=== PATIENT | female | born 1950 | race Caucasian/White ===

== ENCOUNTER 2017-12-26 06:01 | Inpatient (IN) ==
[2017-12-26] MEDS ORDERED: Dexamethasone Inj 20 MG/5 ML Vial IV.PUSH ONE (06:41)
[2017-12-26] MEDS ORDERED: Chlorhexidine 4% Topical 120 APPLIC/120 ML Bottle TOPICAL SCH (06:45)
[2017-12-26] MEDS ORDERED: Metoprolol Tartrate 25 MG Tablet PO ONE (06:48)
[2017-12-26] MEDS ORDERED: Chlorhexidine Gluconate 2% 1 Pack (2 Cloths) TOPICAL ONE (06:48)
[2017-12-26] MEDS ORDERED: Sodium Chlor 0.9% Inj 500 ML IV.SIG SCH (07:00)
[2017-12-26] MEDS ORDERED: Vancomycin Inj 1,000 MG in Sodium Chlor 0.9% Inj 250 ML IV.SIG SCH (07:00)
[2017-12-26] MEDS ORDERED: ceFAZolin 2 GM Premix Inj 2 GM/50 ML PIGGYBACK IV.SIG SCH (07:00)
[2017-12-26] MEDS ORDERED: Bupivacaine Liposomal PF 1.3% Inj 20 ML Vial ONE (07:08)
[2017-12-26] MEDS ORDERED: Bupivacaine 0.5% Inj 50 ML MDV Vial ONE (07:09)
[2017-12-26] MEDS ORDERED: Sodium Chlor 0.9% Inj 73.07 ML, Ropivacaine 0.5% PF Inj 24.63 ML, Ketorolac Inj 30 MG, ... P-ARTICULR SCH ×5 (07:30)
[2017-12-26] MEDS ORDERED: Lidocaine PF 1% Inj 5 ML Syringe OTHER ONE (08:15)
[2017-12-26] MEDS ORDERED: TRANEXAMIC ACID IV.SIG SCH (08:30)
[2017-12-26] MEDS ORDERED: SODIUM CHLOR 0.9% IV.SIG SCH (08:30)
[2017-12-26] MEDS ORDERED: Bisacodyl 10 MG Supp RECTAL PRN (10:20)
[2017-12-26] MEDS ORDERED: Post-op Orders (for Pharmacy) OTHER STA (10:20)
[2017-12-26] MEDS ORDERED: Morphine Inj 4 MG/ML Vial IV.PUSH PRN (10:20)
[2017-12-26] MEDS ORDERED: Aluminum/Magnesium/Simethacone Susp 30 ML UDC PO PRN (10:20)
--- NOTE | 2017-12-26 10:24 | P.OP ---
- Preoperative Diagnosis (1) Osteoarthritis of right knee - Postoperative Diagnosis (1) Osteoarthritis of right knee Date of procedure: 12/26/17 Procedure: Right total knee arthroplasty Anesthesia: [facility] Surgeon: Edmundo Mark MD Lens Maker: LILIANA Cramer The surgical procedure was assisted by my Advanced Registered Nurse Practitioner. My ZOOLOGY PROFESSOR presence was necessary throughout this case for the manipulation and positioning of the surgical extremity. My ZOOLOGY PROFESSOR was assisting me throughout the duration of this procedure. The skill set of an Advance Registered Nurse Practitioner was medically necessary to complete this procedure. During the surgical case, the surgical instrument mechanic was working at the back table and the Advance Registered Nurse Practitioner was directly assisting me. Operation and Findings: IMPLANTS: DePuy Attune: Patella: size 32. Femur, posterior stabilized size 6. Tibia, rotating platform size 5. Tibial insert, rotating platform, posterior stabilized size 5 mm thickness. ESTIMATED BLOOD LOSS: 125 cc TOURNIQUET TIME: 44 minutes at 250 mmHg pressure. JUSTIFICATION FOR PROCEDURE: The patient has end-stage osteoarthritis to the knee. There is an attached conservative measures pathway form in the chart that describes the nonoperative measures that were undertaken prior to consideration of surgical management. The patient understood the risks and benefits of surgical management. See my office notes for further details PROCEDURE: The patient was brought back to the operative theatre. Adequate anesthesia was obtained. The patient received intravenous vancomycin and Ancef. The lower extremity was prepped and draped in the usual sterile fashion. Note that we used DuraPrep and iodine scrub rather than Hibiclens. The leg was exsanguinated , the tourniquet was raised. A standard anterior incision was performed followed by medial parapatellar arthrotomy was performed. End-stage arthritis was identified. Osteotomy of the patella was performed. We drilled holes for the patella. We trialed the patella component. We placed an intramedullary guide into the distal femur. We ultimately resected 13 mm off of the distal femur in 5 degrees of valgus. The remnants of the ACL and PCL were resected. Osteotomy of the proximal tibia was performed, resecting 5 mm off of the medial side. This was done with 3 degrees of posterior slope using an extramedullary guide. The distal end of the guide was placed in the mid aspect of the ankle. The femur was sized, and four chamfer cuts were completed in 3 of external rotation. We then cut the central box in the distal femur to replace the PCL. We resected the remnants of the menisci and removed osteophytes off of the femur and tibia. We then trialed the knee. We punched the tibia for the keel, and then used standard technique to cement in components. Excess cement was removed. We trialed the knee again and the final polyethylene thickness was chosen to provide extension to 0 degrees, and flexion of 140 degrees to gravity. The ligaments were appropriately balanced. Lateral release was necessary to obtain excellent patellofemoral tracking. The tourniquet was released and adequate hemostasis was obtained. An intra- articular injection of a ropivacaine cocktail was injected. The posterior knee was inspected for excess cement, which was removed. The final polyethylene was put into position after thorough irrigation. We then closed deep fascia with a #2 Stratafix followed by skin with 2-0 Vicryl followed by Dermabond dressing. Postop plan is to weight-bear as tolerated. DVT prophylaxis will be performed with SCDs, SHELLEY dockery, early mobilization, and Lovenox followed by aspirin.
[2017-12-26] MEDS ORDERED: fentaNYL Citrate Inj 100 MCG/2 ML Ampul ONE (11:02)
[2017-12-26] MEDS ORDERED: *Meperidine Inj 25 MG/ML Vial PERIprocedural Use ONLY ONE (11:09)
[2017-12-26] MEDS ORDERED: *morphine SULFATE 4 MG/ML PERIprocedure ONLY ONE ×2 (11:24→11:49)
[2017-12-26] MEDS ORDERED: SODIUM CHLOR 0.9% IV.SIG ONE (11:30)
[2017-12-26] MEDS ORDERED: TRANEXAMIC ACID IV.SIG ONE (11:30)
[2017-12-26] MEDS: Sod Chloride 0.9% Inj 1,000 ML IV.CONT SCH (11:34)
--- NOTE | 2017-12-26 11:50 | XR ---
EXAM DATE: 12/26/2017 10:20 AM EDT AGE/SEX: 67 years / Female INDICATIONS: Post-op right knee. CLINICAL DATA: This is the patient's initial encounter. Patient reports that signs and symptoms have been present for 1 day and indicates a pain score of Nonresponsive. MEDICAL/SURGICAL HISTORY: None. None. COMPARISON: No prior exams available for comparison. FINDINGS: Two views of the knee reveal a total knee prosthesis in good position. No fracture or dislocation is observed. Soft tissues are unremarkable. No joint effusion is seen. CONCLUSION: Prosthesis in good position. Electronically signed by: Corona Sanchez MD 12/26/2017 11:49 AM EDT
--- NOTE | 2017-12-26 14:02 | P.DCO ---
- Physical Therapy Physical Therapy: Gait training, Transfer training, bed to chair Knee: Total knee Right Lower Extremity Weight Bearing: Weight bearing as tolerated Right Lower Extremity Range of Motion: Active ROM - Nursing Nursing: Lovenox teaching Dressing changes: Do not change dressing Additional instructions: First dressing change in the office. Take Lovenox injections 1 a day for 10 days followed by a full strength aspirin daily for 30 days. - Certification Need for Home Health services: I have seen patient Roro Jameson on 12/26/17. My clinical findings support the need for the requested home health care services because: Need for Home Health Services: Limited ability to care for self, High risk of falls Homebound Certification: I certify that my clinical findings support that this patient is homebound because: Homebound Certification: Post-op weakness, Unsteady gait/balance
[2017-12-26] MEDS ORDERED: Zolpidem Tartrate 5 MG Tablet PO PRN (21:00)
[2017-12-26] MEDS: Senna/Docusate Sodium 8.6/50 MG Tablet PO SCH (21:08)
[2017-12-26] MEDS: Multivitamin/Minerals Therapeutic Tablet PO SCH (21:08)
[2017-12-27] MEDS: Sod Chloride 0.9% Inj 1,000 ML IV.CONT SCH (02:53)
[2017-12-27 05:07] LABS: Hematocrit 38.5 % (35.0-46.0); Hemoglobin 12.7 gm/dL (11.6-15.3)
--- NOTE | 2017-12-27 06:57 | P.PNOP ---
Subjective Interval history: The patient is resting comfortably in bed in no acute distress. The patient reports minimal pain to the right lower leg. The patient has been ambulatory with minimal difficulty. Physical Exam Vital signs: Vital Signs 12/26/17 07:15 12/26/17 07:18 12/26/17 10:55 Temperature 97.7 F 97.9 F Pulse Rate 65 67 83 Respiratory Rate 16 20 Blood Pressure 159/77 H 165/78 H Pulse Oximetry 97 100 97 12/26/17 11:15 12/26/17 11:30 12/26/17 12:05 Temperature 98.0 F Pulse Rate 82 83 83 Respiratory Rate 16 18 20 Blood Pressure 162/77 H 168/80 H 162/79 H Pulse Oximetry 94 L 97 95 12/26/17 12:58 12/26/17 16:00 12/26/17 16:42 Temperature 97.5 F L 97.5 F L Pulse Rate 73 72 Respiratory Rate 18 18 18 Blood Pressure 172/79 H 129/64 Pulse Oximetry 97 93 L 12/26/17 19:48 12/27/17 00:21 Temperature 97.4 F L 97.7 F Pulse Rate 86 66 Respiratory Rate 18 18 Blood Pressure 127/51 L 121/57 L Pulse Oximetry 95 96 Intake & Output 12/26/17 12/26/17 12/27/17 06:59 18:59 06:59 Intake Total 2110.03 / 2110.03 1440 / 1440 Output Total 100 / 100 Balance 1440 / 1440 Weight 100.3 kg 100.3 kg Intake: IV 1510.03 / 1510.03 1200 / 1200 NS Inj 1,000 ML @ 80 mls/hr IV. 1000 / 1000 CONT .[id number] ROSARIO Rx#:[id number] LR 1000 mL Inj 1,000 ML @ 30 1000 / 1000 mls/hr IV.SIG .Q24H ROSARIO Rx#: [id number] Cyklokapron Inj 1,003 MG In NS 110.03 / 110.03 Inj 100 ML @ 200 mls/hr IV.SIG ONCE [facility]ARIO Rx#:[id number] Vancomycin Inj 1,000 MG In NS 250 / 250 Inj 250 ML @ 250 mls/hr IV.SIG [employer]PER[employer] ROSARIO Rx#:[id number] Ancef 2 GM Premix Inj 2 gm In 50 / 50 50 ml @ 100 mls/hr IV.SIG [employer]IT[employer] SUPERVISOR ROSARIO Rx#:[id number] Ancef Inj 1,000 MG In NS Inj 100 / 100 200 / 200 100 ML @ 200 mls/hr IV.SIG Q6H ROSARIO Rx#:[id number] Oral 600 / 600 240 / 240 Output: Estimated Blood Loss 100 / 100 Other: # Voids 1 2 Date of Last Bowel Movement 12/25/17 12/25/17 # Bowel Movements 0 Weight On Admission 100.3 kg Narrative: The patient's dressing is clean, dry, and intact. There is mild ecchymosis about the right knee. EHL/TA/G are intact. 2+ pedal pulse. The patient's calf is soft and nontender. Sensation is intact to light touch distally. Knee immobilizer is intact. Results - Labs CBC & Chem 7: 12/27/17 04:04 Laboratory Results - last 24 hr 12/26/17 12/27/17 07:19 04:04 Hgb 12.7 Hct 38.5 Blood Type A Negative Blood Type Recheck Required Antibody Screen Negative - Imaging Impressions Knee X-Ray 12/26/17 10:20 CONCLUSION: Prosthesis in good position. - Procedures Right total knee arthroplasty Assessment and Plan - Problem List (1) Status post total knee replacement, right Code(s): Z96.651 - Presence of right artificial knee joint Status: Acute (2) Osteoarthritis of right knee Code(s): M17.11 - Unilateral primary osteoarthritis, right knee Status: Acute - Assessment and Plan POD #1: [Right] total knee arthroplasty 1. Weightbearing as tolerated on [right] lower extremity. 2. Lovenox followed by aspirin for DVT prophylaxis. 3. Ice as needed for swelling. 4. Stable per ortho for discharge to home health today. 5. The patient will follow up with Dr. Mark and/or LILIANA Marcelo as previously scheduled.
[2017-12-27] MEDS ORDERED: Dexamethasone Inj 20 MG/5 ML Vial IV.PUSH ONE (08:00)
[2017-12-27] MEDS: Senna/Docusate Sodium 8.6/50 MG Tablet PO SCH (08:27)
[2017-12-27] MEDS: Multivitamin/Minerals Therapeutic Tablet PO SCH (08:27)
[2017-12-27 09:50] VITALS: O2SAT 93
[2017-12-27] MEDS ORDERED: Enoxaparin Inj 40 MG/0.4 ML Syringe SQ SCH (10:00)
[2017-12-27 12:13] VITALS: BP 134/63; PULSE 61; RESP 14; TEMP 97.9
--- NOTE | 2017-12-31 18:39 | P.DS ---
Date of admission: 12/26/17 06:01 Primary care physician: Osorio Pineda Attending physician on discharge: Edmundo Roach Anticipated date of discharge: 12/27/17 Brief History from admission: The patient was admitted to the hospital for severe right knee osteoarthritis for a right TKA. DS: Diagnosis - Discharge Diagnosis (1) Status post total knee replacement, right Status: Acute (2) Osteoarthritis of right knee Status: Acute DS: Summary Hospital Course: The patient was admitted to the hospital for severe osteoarthritis of the [right ] knee to have a [right] total knee arthroplasty. The patient's surgery went well with no complication. The patient is on a [regular] diet. The patient's DVT prophylaxis includes use of [Lovenox followed by aspirin]. The patient is weightbearing as tolerated. The patient was discharged [home with home health] and will follow up in the office with Dr. Roach and/or LILIANA Marcelo as previously scheduled. - Time Spent with Patient Total time spent providing and/or coordinating discharge services: Greater than 30 minutes - Quality: VTE Deep Vein Thrombosis/Pulmonary Embolism Present on Admission: No Exam Narrative: See last progress note for physical examination. Results Procedures completed during hospitalization: Right total knee arthroplasty - Impressions ITS Impressions Knee X-Ray 12/26/17 10:20 CONCLUSION: Prosthesis in good position. Discharge Plan - Discharge Disposition Patient Disposition: W/Home Health Service - Discharge Condition Condition: Stable - Discharge Order Discharge Orders: Discharge Order (Routine); Ordered 12/26/17 Ordered By: Chris Soernson - Physicians Team Primary Care Provider: Osorio Pineda Attending Provider: Edmundo Roach Other Providers: [employer],Insurance ; [facility], - Rxs /Orders / Referrals /Forms Prescriptions: Continue calcium carbonate [Calcium 500] 500 mg calcium (1,250 mg) Tablet 500 mg PO DAILY cetirizine [Zyrtec] 10 mg Tablet 10 mg PO DAILY cholecalciferol (vitamin D3) [Vitamin D3] 1,000 unit Tablet 3,000 unit PO DAILY fluticasone-vilanterol [Breo Ellipta] 100-25 mcg/dose Blister With Device 1 inh INHALATION DAILY folic acid 1 mg Tablet 1 mg PO DAILY methotrexate sodium 2.5 mg Tablet 7 tab PO QWEEK [id number] [Centrum Silver Women] 8 mg iron-400 mcg-300 mcg Tablet 1 tab PO DAILY Discontinued ibuprofen [Advil] 200 mg Tablet 200 mg PO Q6-8H PRN (Reason: Pain) Ambulatory Orders / Order Sets / DME: Adjustable Commode 3-in-1 (1 each) (Routine) Location: Determined by Patient Ordered By: Chris Sorenson CPM - Continuous Passive Motion Machine (1 each) (Routine) Location: Determined by Patient Ordered By: Chris Sorenson Walker With Front Wheels (1 each) (Routine) Location: Determined by Patient Ordered By: Chris Sorenson Referrals: Edmundo Roach MD [Physician] - See Instructions (F/U in the office with Dr. Roach or LILIANA Marcelo as previously scheduled.) Osorio Pineda MD [Primary Care Provider] - See Instructions - Discharge Instructions Patient Printed Instructions: Hydrocodone/Acetaminophen (By mouth), How to Choose and Use a Walker (GEN), Fall Prevention (ED), Knee Replacement (DC) Additional Instructions: RX FOR PAIN PRESCRIPTION GIVEN TO PATIENT BY DOCTOR PRIOR TO ADMISSION. FOLLOW UP WITH DR. ROACH SCHEDULED. IF YOU HAVE ANY QUESTIONS OR CONCERNS, PLEASE CALL THE OFFICE. FOLLOW UP WITH YOUR PRIMARY CARE PROVIDER IN 3-4 DAYS. NO HEAVY LIFTING OR STRENUOUS ACTIVITY. NO DRIVING WHILE TAKING NARCOTIC PAIN MEDICINE. DO NOT CHANGE YOUR DRESSING!! FIRST DRESSING CHANGE TO BE DONE IN OFFICE. - Post Discharge Care Plan Care Plan Goals: Discharge Care Plan Goals for Total Knee Replacement You have undergone knee replacement surgery. Your doctor replaced your painful joint with an artificial joint to relieve pain and restore movement. Here are some goals to help you heal well. Directions to Meet your Goals: 1. Activity & Exercises: * Take pain medicine as directed by your doctor. * Sit in chairs with arms. The arms make it easier for you to stand up or sit down. * Dont sit for more than 30 to 45 minutes at one time. * Nap if you are tired, but dont stay in bed all day. * Sleep with a pillow under your ankle, not your knee. Be sure to change the position of your leg during the night. * Wear the support stockings you were given in the hospital as directed by your surgeon. 2. Prevent Falls/Injury: The morales to successful recovery is movement with walking and exercising your knee as directed by your doctor. * Arrange your household to keep the items you need handy. Keep everything else out of the way. * Remove items that may cause you to fall, such as throw rugs and electrical cords. * Use nonslip bath mats, grab bars, an elevated toilet seat, and a shower chair in your bathroom * Sit on a shower stool or chair when you shower to keep from falling. * Until your balance, flexibility, and strength improve, use a cane, crutches, a walker, handrails, or someone to help you. * Keep your hands free by using a backpack, anna pack, apron, or pockets to carry things * Walk up and down stairs with support. Try one step at a time. Use the railing if possible. * Dont drive until your doctor says its OK. * Dont drive while you are taking opioid pain medicine. 3. Precautions: * Prevent infection. Any infection will need to be treated immediately. Call your doctor right away if you think you might have an infection. * Tell your dentist that you have an artificial joint and take antibiotics as prescribed before any dental work. * Tell all your healthcare providers about your artificial joint before any medical procedure. * Maintain a healthy weight. Get help to lose any extra pounds. Added body weight puts stress on the knee. * Your medications may include blood-thinning medicine to prevent blood clots or antibiotics to prevent infection-prevent any falls or cuts 4. Incision Care: * Prevent infection by washing your hands often. If an infection occurs, it will need to be treated right away. * Call your doctor right away if you think you may have an infection. Symptoms include a fever or an incision that leaks white, green, or yellow fluid. * Don't soak your incision in water until your doctor says its OK. This means no hot tubs, bathtubs, or swimming pools. * Follow your doctor's instructions for changing the dressing. * Dont rub the incision, or apply creams or lotions to it. * If you notice any redness or drainage around the bandage site, contact your surgeon's office immediately. 5. Follow-Up: Do Not miss your follow-up appointment. Keep up with all your appointments and yearly check ups When to call your doctor: Call your doctor right away if you have: Fever of 100.4F (38C) or higher, or as directed by your doctor Shaking chills Stiffness, or inability to move the knee Increased swelling in your leg Increased redness, tenderness, or swelling in or around the knee incision Drainage from the knee incision Increased knee pain Call 911: Call 911 right away if you have: Chest pain Shortness of breath Any pain or tenderness in your calf
== END 2017-12-27 15:04 | disposition home health service (06) ==
LOC: HSDI 06:01 → N06 12:22
PROVIDERS: ADMIT Orthopaedic Surgery; ATTEND Orthopaedic Surgery